=== PATIENT | female | born 1955 | race Caucasian/White ===

== ENCOUNTER → 2016-06-09 | Outpatient (CLI) | payer BC | END | disposition home or self-care (01) | LOC: CFH 09:55 | PROVIDERS: ATTEND Internal Medicine | DX: K76.89 Other specified diseases of liver (principal); I87.8 Other specified disorders of veins | CPT/HCPCS: 76705 ==

== ENCOUNTER → 2016-06-30 | Outpatient (CLI) | payer BC ==
[~2016-06-30] MED LIST: OMNIPAQUE 350 MG/ML, 100ML BOTTLE ONE
== END | disposition home or self-care (01) ==
LOC: CFH 06-27 07:57
PROVIDERS: ATTEND Internal Medicine
DX: D18.03 Hemangioma of intra-abdominal structures (principal); K76.89 Other specified diseases of liver
CPT/HCPCS: 74170; 82565; Q9967

== ENCOUNTER → 2017-07-03 | Outpatient (CLI) | payer BC | END | disposition home or self-care (01) | LOC: CFH 08:00 | PROVIDERS: ATTEND Internal Medicine | DX: Z08 Encounter for follow-up examination after completed treatment for malignant neoplasm (principal); Z85.3 Personal history of malignant neoplasm of breast; Z90.13 Acquired absence of bilateral breasts and nipples | CPT/HCPCS: C8908 ==

== ENCOUNTER 2019-11-05 08:00 | Outpatient (CLI) | payer BC ==
[2019-11-05] MEDS ORDERED: GADOTERATE 7.5 MMOL/15 ML SYR ONE (09:16)
== END 2019-11-05 23:59 | disposition home or self-care (01) ==
LOC: CFH 08:00
PROVIDERS: ATTEND Internal Medicine
DX: R92.8 Other abnormal and inconclusive findings on diagnostic imaging of breast (principal); Z85.3 Personal history of malignant neoplasm of breast; Z98.890 Other specified postprocedural states
CPT/HCPCS: 77049; A9575; C8937; C8908